=== PATIENT | male | born 1965 | race Caucasian/White ===

== ENCOUNTER 2016-08-12 08:24 | Outpatient (CLI) | payer BC | END 2016-08-12 08:25 | LOC: NAVSJIPCSP 08:24 | PROVIDERS: ATTEND Internal Medicine | DX: E78.5 Hyperlipidemia, unspecified (principal) | CPT/HCPCS: 36415; 80061 ==

== ENCOUNTER 2016-11-18 09:09 | Outpatient (CLI) | payer BC ==
[2016-11-18 13:04] LABS: Cardiac Risk 5.5 (Less than 4.5)
== END 2016-11-18 09:10 | disposition home or self-care (01) ==
LOC: NAVSJIPCSP 09:09
PROVIDERS: ATTEND Internal Medicine
DX: E78.5 Hyperlipidemia, unspecified (principal)
CPT/HCPCS: 36415; 80061